=== PATIENT | male | born 1985 | race Caucasian/White ===

== ENCOUNTER 2016-10-21 10:00 | Emergency (ER) | payer BC ==
[2016-10-21 10:07] VITALS: BP 139/99
--- OUTSIDE RECORDS SUMMARY | 2016-10-21 10:20 | XMS REPORT | Continuity of Care Document ---
:1985 Author Organization [facility] [place] [address] Care Team Providers Name Role Phone Unavailable Primary Care Provider Unavailable Source Comments This disclosure is being made pursuant to the [employer] program and maynot contain all information available regarding this patient.[facility] Active Allergies and Adverse Reactions Not on File Current Medications Be aware that medications may not be up to date as of this document. Alwaysverify current medications with the patient. Not on file Active Problems Not on file Social History Tobacco Use Types Packs/Day Years Used Date Never Assessed Plan of Care Health Maintenance Due Date Last Done Comments Retired-Pertussis Vaccine Adult 2006 Retired-Tetanus Vaccine Adult 2006 Retired-INFLUENZA VACCINE 01/16/2015 Results from Last 3 Months Not on file
--- OUTSIDE RECORDS SUMMARY | 2016-10-21 10:20 | XMS REPORT | Continuity of Care Document ---
:1985 Author Organization [facility] ([facility]) Address [place] [address] Phone [phone] Care Team Providers Name Role Phone Provider, No-Primary Care Primary Care Provider Unavailable Source Comments This disclosure is being made pursuant to the Care Everywhere program, applicable federal and state laws, and may not contain all informaitonavailable regarding this patient.[facility] ([facility]) Active Allergies and Adverse Reactions No Known Allergies Current Medications Prescription Sig. Disp. Refills Start Date End Date Status ibuprofen (MOTRIN) 800 mg Take 800 mg by Active tablet mouth every 6 hours as needed. Indications: Pain traMADol (ULTRAM) 50 mg Take 50 mg by Active tablet mouth every 6 hours as needed. Indications: Pain HYDROcodone-acetaminophen Take 1 Tab by Active (VICODIN) 5-500 mg per mouth every 6 tablet hours as needed. Indications: Pain Active Problems Not on file Social History Tobacco Use Types Packs/Day Years Used Date Never Assessed Last Filed Vital Signs Vital Sign Reading Time Taken Blood Pressure 146/94 02/07/2010 9:44 AM CDT Pulse 70 02/07/2010 9:44 AM CDT Temperature 36.4 C (97.5 F) 02/04/2009 12:52 PM CDT Respiratory Rate 16 02/04/2009 12:52 PM CDT Height 1.735 m (5' 8.31") 02/07/2010 9:44 AM CDT Weight 78 kg (171 lb 15.3 oz) 02/07/2010 9:44 AM CDT Body Mass Index 25.91 02/07/2010 9:44 AM CDT Oxygen Saturation 99% 02/04/2009 12:52 PM CDT Plan of Care Health Maintenance Due Date Last Done Comments Hepatitis B Vaccine (1 of 3 - Primary Series) 1987 Tdap Vaccine 1998 Lipid Disorder Screening 2005 MMR Vaccine 2005 Td Vaccine 2005 Varicella Vaccine (1 of 2 - Adult - No Evidence of 2005 Immunity) Influenza Vaccine: Seasonal (#1) 12/17/2015 Results from Last 3 Months Not on file
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
== END 2016-10-21 10:11 | disposition left against medical advice (07) ==
LOC: ER 10:00
DX: S09.93XA Unspecified injury of face, initial encounter (principal); V49.9XXA Car occupant (driver) (passenger) injured in unspecified traffic accident, initial encounter; Z53.29 Procedure and treatment not carried out because of patient's decision for other reasons